=== PATIENT | female | born 1965 | race Caucasian/White ===

== ENCOUNTER 2017-02-28 09:04 | Inpatient (IN) | payer OTHER ==
[~2017-02-28] VITALS: Ht 170.2 cm; Wt 63.0 kg
[~2017-02-28 09:04] MED LIST: CLARITIN10 MG PO; NAPROXEN500 MG PO; NARCAN4 MG NS; NEURONTIN600 MG PO; PEN-VEE K,VEET500 MG PO; PROVENTIL,200 INHALA IH
[2017-02-28 10:06] LABS: EOSINOPHIL (%) 1.5 % (0-5); EOSINOPHIL COUNT 0.1 K/uL (0-0.3); HEMATOCRIT 41.3 % (36.0-46.0); IMMATURE GRANULOCYTE (%) 0.4 % (0.0-0.7); INSTRUMENT ABS NEUTROPHIL CT 3.4 K/uL; MCH 30.7 PG (29.0-34.0); MCHC 33.2 G/DL (30.0-36.0); MCV 92.6 FL (83-99); MEAN PLAT.VOLUME 10.4 uM^3 (9.5-12.4); MONOCYTE (%) 7.1 % (3-12); MONOCYTE COUNT 0.3 K/uL (0-0.8); NEUTROPHIL (%) 70.4 % (45-76); NEUTROPHIL COUNT 3.4 K/uL (1.8-6.4); PLATELET COUNT 156 K/uL (156-360); RBC DIS.WIDTH-CV 12.4 % (11.8-14.6); RBC DIS.WIDTH-SD 42.4 % (39-53); RED BLOOD COUNT 4.46 M/uL (3.80-5.20); WHITE BLOOD COUNT 4.8 K/uL (4.1-10.2)
[2017-02-28 10:17] LABS: CHLORIDE 107 mEq/L (99-109); POTASSIUM 3.3 mEq/L (3.7-5.4); SODIUM 141 mEq/L (136-147)
[2017-02-28 10:20] LABS: GLUCOSE 111 mg/dL (70-99)
[2017-02-28 10:21] LABS: ANION GAP 7 MEQ/L (2-14); TOTAL BILIRUBIN 0.4 mg/dL (0.0-1.0)
[2017-02-28 10:22] LABS: SERUM ETHYL ALCOHOL < 10 mg/dL
[2017-02-28 10:23] LABS: ALKALINE PHOSPHATASE 78 IU/L (3-129); GFR ESTIMATE (CALCULATED) > 59 mL/min/
[2017-02-28 10:24] LABS: UREA NITROGEN (BUN) 10 mg/dL (9-23)
[2017-02-28 10:35] LABS: QUANTITATIVE HCG < 4.0 MIU/ML
[2017-02-28] MEDS ORDERED: METRONIDAZOLE500 MG PO (11:34)
[2017-02-28] MEDS ORDERED: CLEOCIN300 MG PO (11:36)
[2017-02-28] MEDS ORDERED: TRAMADOL HCL50 MG PO (11:37)
[2017-02-28] MEDS ORDERED: CETIRIZINE HCL10 M2 PO (11:37)
[2017-02-28] MEDS ORDERED: METHADOSE10 MG/1 ML PO (11:40)
[2017-02-28 13:10] LABS: AMPHETAMINE NEGATIVE (500 ng/mL); BARBITURATES NEGATIVE (200 ng/mL); BENZODIAZEPINES NEGATIVE (150 ng/mL); COCAINE PRESUMPTIVE POSITIVE (150 ng/mL); INTERNAL CONTROLS VALID? YES; METHADONE PRESUMPTIVE POSITIVE (200 ng/mL); METHAMPHETAMINE NEGATIVE (500 ng/mL); OPIATES (MORPHINE) PRESUMPTIVE POSITIVE (100 ng/mL); OXYCODONE NEGATIVE (100 ng/mL); PHENCYCLIDINE NEGATIVE (25 ng/mL); PROPOXYPHENE NEGATIVE (300 ng/mL); THC CANNABINOIDS PRESUMPTIVE POSITIVE (50 ng/mL); TRICYCLIC ANTIDEPRESSANTS NEGATIVE (300 ng/mL)
[2017-02-28 13:11] LABS: ADD MEDTOX COMMENT Y
[2017-02-28 13:48] VITALS: BP 112/74
[2017-02-28 13:58] VITALS: BP 112/74
[2017-02-28 15:30] VITALS: BP 92/56
[2017-03-01 07:35] VITALS: BP 116/71
[2017-03-01] MEDS ORDERED: DULOXETINE HCL30 MG PO (10:58)
== END 2017-03-01 11:34 | disposition home or self-care (01) | DRG 885 ==
LOC: EME 09:04 → EDOF 10:55 → 1WEST 13:23
PROVIDERS: Emergency Medicine
DX: F33.9 Major depressive disorder, recurrent, unspecified (principal); F11.23 Opioid dependence with withdrawal; R45.851 Suicidal ideations; Z56.0 Unemployment, unspecified; K02.9 Dental caries, unspecified; F60.9 Personality disorder, unspecified; J45.909 Unspecified asthma, uncomplicated
CPT/HCPCS: 80053; 84702; 84999; 85025; 90839; 94640; 94640 76; 99202; G0480

== ENCOUNTER 2017-05-01 05:09 | Emergency (ER) | payer OTHER ==
[~2017-05-01] VITALS: Ht 170.2 cm; Wt 56.0 kg
[~2017-05-01 05:09] MED LIST changes: +CETIRIZINE HCL10 M2 PO; +CLEOCIN300 MG PO; +DULOXETINE HCL30 MG PO; +METHADOSE10 MG/1 ML PO; +METRONIDAZOLE500 MG PO; +TRAMADOL HCL50 MG PO
[2017-05-01 06:07] LABS: BASOPHIL COUNT 0.1 K/uL (0-0.1); EOSINOPHIL (%) 0.2 % (0-5); HEMATOCRIT 44.2 % (36.0-46.0); IMMATURE GRANULOCYTE (%) 0.5 % (0.0-0.7); IMMATURE GRANULOCYTE COUNT 0.1 K/uL; LYMPHOCYTE COUNT 1.3 K/uL (1.0-2.8); MCH 30.8 PG (29.0-34.0); MCHC 34.2 G/DL (30.0-36.0); MEAN PLAT.VOLUME 10.5 uM^3 (9.5-12.4); MONOCYTE (%) 5.9 % (3-12); MONOCYTE COUNT 0.7 K/uL (0-0.8); NEUTROPHIL (%) 81.6 % (45-76); PLATELET COUNT 191 K/uL (156-360); RBC DIS.WIDTH-CV 12.5 % (11.8-14.6); RBC DIS.WIDTH-SD 41.1 % (39-53); RED BLOOD COUNT 4.91 M/uL (3.80-5.20); WHITE BLOOD COUNT 11.1 K/uL (4.1-10.2)
[2017-05-01 06:15] LABS: CHLORIDE 102 mEq/L (99-109); POTASSIUM 3.6 mEq/L (3.7-5.4); SODIUM 136 mEq/L (136-147)
[2017-05-01 06:17] LABS: GLUCOSE 108 mg/dL (70-99)
[2017-05-01 06:18] LABS: ANION GAP 12 MEQ/L (2-14)
[2017-05-01 06:20] LABS: GFR ESTIMATE (CALCULATED) 42 mL/min/; SERUM ETHYL ALCOHOL < 10 mg/dL
[2017-05-01 06:21] LABS: UREA NITROGEN (BUN) 24 mg/dL (9-23)
[2017-05-01 14:23] VITALS: BP 117/73
== END 2017-05-01 14:35 | disposition home or self-care (01) ==
LOC: EME → EDBD 05:09 → EME 05:09
PROVIDERS: Emergency Medicine
DX: F30.9 Manic episode, unspecified (principal); G89.29 Other chronic pain; F19.10 Other psychoactive substance abuse, uncomplicated; F17.200 Nicotine dependence, unspecified, uncomplicated
CPT/HCPCS: 80048; 85025; 90839; 99281; 99283; G0480; J2060

== ENCOUNTER 2017-05-02 02:23 | Emergency (ER) | payer OTHER ==
[~2017-05-02] VITALS: Ht 170.2 cm; Wt 57.7 kg
[2017-05-02 08:09] VITALS: BP 121/84
[2017-05-03] MEDS ORDERED: DESYREL100 MG PO (00:53)
[2017-05-03] MEDS ORDERED: METHADONE1 MG/1 ML PO (00:56)
== END 2017-05-02 08:10 | disposition home or self-care (01) ==
LOC: EME 02:23
DX: S01.81XA Laceration without foreign body of other part of head, initial encounter (principal); Y04.8XXA Assault by other bodily force, initial encounter; F17.200 Nicotine dependence, unspecified, uncomplicated; F11.20 Opioid dependence, uncomplicated
CPT/HCPCS: 70450; 70486; 72125; 80053; 81003; 84702; 85025; 87651 90; 90839; 99281; 99285; G0480

== ENCOUNTER 2017-05-02 17:26 | Inpatient (IN) | payer OTHER ==
[~2017-05-02] VITALS: Ht 170.2 cm; Wt 62.8 kg
[2017-05-02 18:40] LABS: HEMATOCRIT 42.5 % (36.0-46.0); MCHC 34.1 G/DL (30.0-36.0); MCV 87.8 FL (83-99); MEAN PLAT.VOLUME 10.5 uM^3 (9.5-12.4); PLATELET COUNT 171 K/uL (156-360); RBC DIS.WIDTH-CV 12.2 % (11.8-14.6); RBC DIS.WIDTH-SD 39.5 % (39-53); RED BLOOD COUNT 4.84 M/uL (3.80-5.20); WHITE BLOOD COUNT 5.8 K/uL (4.1-10.2)
[2017-05-02 18:57] LABS: CHLORIDE 102 mEq/L (99-109); POTASSIUM 3.1 mEq/L (3.7-5.4); SODIUM 138 mEq/L (136-147)
[2017-05-02 18:59] LABS: GLUCOSE 95 mg/dL (70-99)
[2017-05-02 19:01] LABS: ANION GAP 15 MEQ/L (2-14)
[2017-05-02 19:02] LABS: SERUM ETHYL ALCOHOL < 10 mg/dL
[2017-05-02 19:03] LABS: GFR ESTIMATE (CALCULATED) 56 mL/min/
[2017-05-02 19:04] LABS: UREA NITROGEN (BUN) 21 mg/dL (9-23)
[2017-05-02 19:14] LABS: QUANTITATIVE HCG < 4.0 MIU/ML
[2017-05-02 23:29] LABS: AMPHETAMINE PRESUMPTIVE POSITIVE (500 ng/mL); BARBITURATES NEGATIVE (200 ng/mL); BENZODIAZEPINES PRESUMPTIVE POSITIVE (150 ng/mL); COCAINE PRESUMPTIVE POSITIVE (150 ng/mL); METHADONE PRESUMPTIVE POSITIVE (200 ng/mL); METHAMPHETAMINE PRESUMPTIVE POSITIVE (500 ng/mL); OPIATES (MORPHINE) PRESUMPTIVE POSITIVE (100 ng/mL); OXYCODONE NEGATIVE (100 ng/mL); PHENCYCLIDINE NEGATIVE (25 ng/mL); PROPOXYPHENE NEGATIVE (300 ng/mL); THC CANNABINOIDS PRESUMPTIVE POSITIVE (50 ng/mL); TRICYCLIC ANTIDEPRESSANTS NEGATIVE (300 ng/mL)
[2017-05-02 23:30] LABS: ADD MEDTOX COMMENT Y; INTERNAL CONTROLS VALID? YES
[2017-05-03 00:49] LABS: BENZODIAZEPINES QUANT VALUE 0 NG/ML; BENZODIAZEPINES, URINE SCREEN Negative (200 ng/mL)
[2017-05-03] MEDS ORDERED: DESYREL100 MG PO (00:53)
[2017-05-03] MEDS ORDERED: METHADONE1 MG/1 ML PO (00:56)
[2017-05-03 00:58] VITALS: BP 120/73
[2017-05-03 07:56] VITALS: BP 75/49
[2017-05-03 08:17] VITALS: BP 100/66
[2017-05-03 15:38] VITALS: BP 79/53
[2017-05-03 18:45] VITALS: BP 100/59
[2017-05-04 08:04] VITALS: BP 111/55
[2017-05-04 16:05] VITALS: BP 89/52
[2017-05-05 07:49] VITALS: BP 99/54
[2017-05-05 15:55] VITALS: BP 105/55
[2017-05-06 08:14] VITALS: BP 101/59
[2017-05-06 15:40] VITALS: BP 87/53
[2017-05-06 16:38] VITALS: BP 98/57
[2017-05-06 18:10] VITALS: BP 97/59
[2017-05-07 07:28] VITALS: BP 111/55
[2017-05-07 15:54] VITALS: BP 105/52
[2017-05-08 08:36] VITALS: BP 105/62
[2017-05-08 15:46] VITALS: BP 87/54
[2017-05-09 08:33] VITALS: BP 100/55
[2017-05-09 15:34] VITALS: BP 104/59
[2017-05-10 07:59] VITALS: BP 109/55
[2017-05-10 16:29] VITALS: BP 114/55
[2017-05-11 09:15] VITALS: BP 100/55
[2017-05-11 17:03] VITALS: BP 96/51
[2017-05-12 07:57] VITALS: BP 101/63
[2017-05-12 09:45] LABS: ADD MIUA? YES; BILIRUBIN NEGATIVE; BLOOD NEGATIVE; COLOR STRAW ((YELLOW)); GLUCOSE (STRIP) NEGATIVE; KETONES NEGATIVE; LEUKOCYTES MODERATE; NITRITE NEGATIVE; PROTEIN (STRIP) NEGATIVE; SPECIFIC GRAVITY 1.005 (1.000-1.030); UROBILINOGEN 0.2 MG/DL (0.2-1.0)
[2017-05-12 10:20] LABS: BACTERIA RARE /HPF; EPITHELIAL CELLS RARE /HPF; MUCUS NONE SEEN /LPF; RED BLOOD CELLS 0-5 /HPF (0-5)
[2017-05-12] MEDS ORDERED: CITALOPRAM HBR20 MG PO (11:22)
[2017-05-12] MEDS ORDERED: DESYREL 150 MG150 MG PO (11:22)
[2017-05-12] MEDS ORDERED: Neosporin Ointment TP (11:22)
[2017-05-12] MEDS ORDERED: BUSPAR15 MG PO (11:22)
[2017-05-12] MEDS ORDERED: BISAC-EVAC10 MG PR (11:22)
[2017-05-12] MEDS ORDERED: TENEX1 MG PO (11:22)
[2017-05-12] MEDS ORDERED: VENTOLIN HFA18 GM IH (11:22)
[2017-05-12] MEDS ORDERED: SENNA PLUS TAB1 EACH PO (11:22)
[2017-05-12] MEDS ORDERED: LYRICA50 MG PO (11:22)
[2017-05-12] MEDS ORDERED: METHADONE10 MG PO (11:24)
[2017-05-12] MEDS ORDERED: CELEXA40 MG PO (11:31)
[2017-05-12] MEDS ORDERED: BUSPAR30 MG PO (11:32)
== END 2017-05-12 13:56 | disposition other institution (70) | DRG 885 ==
LOC: EME 17:26 → ENRESERV 22:13 → 1WEST 22:20 → EDOF 22:20 → 1WEST 05-03 00:48
PROVIDERS: Nurse Practitioner Family; Psychiatry & Neurology Psychiatry
DX: F33.2 Major depressive disorder, recurrent severe without psychotic features (principal); R45.851 Suicidal ideations; F11.20 Opioid dependence, uncomplicated; E87.6 Hypokalemia; Z59.0 Homelessness; F12.10 Cannabis abuse, uncomplicated; F15.10 Other stimulant abuse, uncomplicated; F14.10 Cocaine abuse, uncomplicated; F41.9 Anxiety disorder, unspecified; F60.9 Personality disorder, unspecified; J44.9 Chronic obstructive pulmonary disease, unspecified; K59.03 Drug induced constipation; T40.605A Adverse effect of unspecified narcotics, initial encounter; F17.210 Nicotine dependence, cigarettes, uncomplicated; F90.9 Attention-deficit hyperactivity disorder, unspecified type; Z81.8 Family history of other mental and behavioral disorders; M54.2 Cervicalgia; G89.29 Other chronic pain; R10.30 Lower abdominal pain, unspecified; R61 Generalized hyperhidrosis
CPT/HCPCS: 71020; 80048; 81003; 84702; 84999; 85027; 90839; 94640; 94640 76; 97150 GO; 97165 GO; 99202; 99281; 99285; G0480; Q0177

== ENCOUNTER 2017-06-10 05:00 | Emergency (ER) | payer OTHER ==
[~2017-06-10] VITALS: Ht 170.2 cm; Wt 54.5 kg
[~2017-06-10 05:00] MED LIST changes: +BISAC-EVAC10 MG PR; +BUSPAR15 MG PO; +BUSPAR30 MG PO; +CELEXA40 MG PO; +CITALOPRAM HBR20 MG PO; +DESYREL 150 MG150 MG PO; +DESYREL100 MG PO; +LYRICA50 MG PO; +METHADONE1 MG/1 ML PO; +METHADONE10 MG PO; +Neosporin Ointment TP; +SENNA PLUS TAB1 EACH PO; +TENEX1 MG PO; +VENTOLIN HFA18 GM IH
[2017-06-10 09:28] VITALS: BP 124/89
== END 2017-06-10 09:29 | disposition home or self-care (01) ==
LOC: EME 05:00
DX: M25.552 Pain in left hip (principal); M25.561 Pain in right knee; M25.562 Pain in left knee; Z59.0 Homelessness; F17.200 Nicotine dependence, unspecified, uncomplicated
CPT/HCPCS: 99281; 99284